=== PATIENT | female | born 1995 | race Hispanic/Latino ===

== ENCOUNTER 2021-01-01 14:47 | Emergency (ER) | payer OTHER ==
[~2021-01-01] VITALS: Ht 160 cm; Wt 107.2 kg
[2021-01-01] MEDS ORDERED: IBUPROFEN 600 MG TAB PO STA (15:25)
[2021-01-01] MEDS ORDERED: SODIUM CHLORIDE 0.9% 1000ML 1,000 ML IV SCH (15:30)
[2021-01-01] MEDS ORDERED: CEFDINIR300 MG PO (17:09)
[2021-01-01] MEDS ORDERED: AZITHROMYCIN250 MG PO (17:09)
[2021-01-01] MEDS ORDERED: DEXAMETHASONE6 MG PO (17:11)
== END 2021-01-01 17:24 | disposition home or self-care (01) ==
LOC: FSED 15:14
DX: J18.9 Pneumonia, unspecified organism (principal); R50.9 Fever, unspecified; R05 Cough; D72.819 Decreased white blood cell count, unspecified; I10 Essential (primary) hypertension; L40.9 Psoriasis, unspecified
CPT/HCPCS: 71046; 80053; 81003; 81025; 85025; 87400; 99284; J7030